=== PATIENT | female | born 1935 | race Two or more races ===

== ENCOUNTER 2017-08-06 20:21 | Emergency (ER) | payer OTHER ==
[2017-08-06 20:32] VITALS: BP 159/65; PULSE 68; TEMP 99; BMI 26.5
--- NOTE | 2017-08-06 20:59 | PDOC ---
Attending Attestation - Resident Resident Name: JaxsonmorrisKelton - ED Attending Attestation I have performed the following: I have examined & evaluated the patient, The case was reviewed & discussed with the resident, I agree w/resident's findings & plan - HPI HPI: 08/06/17 21:45 Pt comes with flu like symptoms. - Physicial Exam PE: 08/06/17 21:45 Agree with resident exam - Medical Decision Making 08/06/17 21:45 CXR normal, Flu culture pending CBC and chem pending Pt will be discharged home with 08/07/17 00:32 Flu positive. Pt hydrated with 1 L fluid. IV placed by myself in her left EJ vein
--- NOTE | 2017-08-06 21:04 | PDOC ---
History of Present Illness <Michelle Carmichael - Last Filed: 08/07/17 00:10> - History of Present Illness Initial Comments: 08/06/17 20:58 Pt is an 82 y/o F with PMH HTN, HLD, DM, Thyroid nodule (U/S in 07/16) who presents with 9 days of generalized body pain, coughing productive of clear sputum and yellow diarrhea. Pt has been coughing daily for the past 9 days. Temp at home was 99F. Denies runny nose, nausea, vomiting. Diarrhea stopped yesterday. Pt states she has been drinking fluids and has been eating smaller meals since feeling unwell. Denies recent travel. Pt's daughter was feeling unwell 2 weeks ago, but had different symptoms. <Kelton Barrera - Last Filed: 08/07/17 00:18> - General Chief Complaint: Cold Symptoms Stated Complaint: COUGH, WEAKNESS Time Seen by Provider: 08/06/17 20:36 Past History <Michelle Carmichael - Last Filed: 08/07/17 00:10> - Past Medical History Anemia: No Asthma: No Cancer: No Cardiac Disorders: No CVA: No COPD: No CHF: No Dementia: No Diabetes: Yes Dialysis: No GI Disorders: Yes (ACID REFLUX) Disorders: No HTN: Yes Hypercholesterolemia: Yes Liver Disease: No Seizures: No Thyroid Disease: No - Surgical History Abdominal Surgery: Yes (TUBAL LIGATION) Appendectomy: No Cardiac Surgery: No Cholecystectomy: No Lung Surgery: No Neurologic Surgery: No Orthopedic Surgery: No - Suicide/Smoking/Psychosocial Hx Smoking Status: No Smoking History: Never smoked Number of Cigarettes Smoked Daily: 0 Hx Alcohol Use: No Drug/Substance Use Hx: No Substance Use Type: None Hx Substance Use Treatment: No <Kelton Barrera - Last Filed: 08/07/17 00:18> - Past Medical History Allergies/Adverse Reactions: Allergies Allergy/AdvReac Type Severity Reaction Status Date / Time No Known Allergies Allergy Verified 08/06/17 21:06 Home Medications: Ambulatory Orders Calcium Carbonate/Vitamin D3 [Vitamin D-3 400 Units Tablet] 1 each PO DAILY #0 tablet 12/13/12 Lansoprazole [Prevacid -] 30 mg PO DAILY #0 cap.sr.24h 12/13/12 Mcneal-3 Acid Ethyl Esters [Lovaza -] 4,000 mg PO DAILY #0 cap 05/15/13 Ranitidine Oral Solution [Zantac Oral Solution -] 150 mg PO BID #0 cup 12/13/12 Simvastatin [Zocor -] 40 mg PO HS #0 tablet 12/13/12 Losartan Potassium [Cozaar] 25 mg PO DAILY 01/08/13 Metformin HCl [Glucophage -] 500 mg PO DAILY 01/08/13 Sennosides/Docusate Sodium [Senna Laxative Tablet] 2 each PO BID 01/08/13 Aspirin/Dipyridamole [Aggrenox -] PO DAILY 03/14/13 Benzonatate [Tessalon Pearls -] 100 mg PO TID #21 capsule 08/07/17 Oseltamivir Phosphate [Tamiflu -] 75 mg PO BID #10 capsule 08/07/17 Review of Systems - Review of Systems Able to Perform ROS?: Yes Is the patient limited Jamaican proficient: Yes Constitutional: Yes: Symptoms Reported, Loss of Appetite, Malaise, Weakness. No : Chills, Fever, Night Sweats HEENTM: Yes: Symptoms Reported. No: Eye Pain, Blurred Vision, Tearing, Ear Pain , Nose Congestion, Nose Bleeding, Throat Pain, Throat Swelling Respiratory: Yes: Symptoms reported, See HPI, Cough, Productive cough. No: Orthopnea, Shortness of Breath, Stridor, Wheezing, Hemoptysis Cardiac (ROS): Yes: Symptoms Reported. No: Chest Pain ABD/GI: Yes: Symptoms Reported, Diarrhea, Poor Appetite. No: Constipated, Difficulty Swallowing, Nausea, Poor Fluid Intake, Rectal Bleeding, Vomiting : Yes: Symptoms Reported. No: Burning, Dysuria, Discharge, Frequency, Hematuria Musculoskeletal: Yes: Symptoms Reported, Muscle Pain, Muscle Weakness <Kelton Barrera - Last Filed: 08/07/17 00:18> *Physical Exam - Vital Signs Last Vital Signs Temp Pulse Resp BP Pulse Ox 99 F 68 16 159/65 100 08/06/17 20:25 08/06/17 20:25 08/06/17 20:25 08/06/17 20:25 08/06/17 20:25 <Michelle Carmichael - Last Filed: 08/07/17 00:10> - Vital Signs Last Vital Signs Temp Pulse Resp BP Pulse Ox 99 F 68 16 159/65 100 08/06/17 20:25 08/06/17 20:25 08/06/17 20:25 08/06/17 20:25 08/06/17 20:25 - Physical Exam General Appearance: Yes: Nourished, Appropriately Dressed. No: Apparent Distress HEENT: positive: EOMI, FELICITAS, Normal ENT Inspection, Normal Voice Neck: positive: Supple. negative: Tender Respiratory/Chest: positive: Lungs Clear, Normal Breath Sounds. negative: Chest Tender, Respiratory Distress, Crackles, Rales, Rhonchi, Stridor, Wheezing Cardiovascular: positive: Regular Rhythm, Regular Rate, S1, S2. negative: Edema , JVD, Murmur Vascular Pulses: Dorsalis-Pedis (R): 2+, Doralis-Pedis (L): 2+ Gastrointestinal/Abdominal: positive: Normal Bowel Sounds, Flat, Soft. negative : Tender, Organomegaly, Pulsatile Mass Musculoskeletal: positive: Normal Inspection Extremity: positive: Normal Capillary Refill, Normal Inspection, Normal Range of Motion Neurologic: positive: Fully Oriented, Alert, Normal Mood/Affect <Hilmy,Kelton - Last Filed: 08/07/17 00:18> ED Treatment Course - LABORATORY CBC & Chemistry Diagram: 08/06/17 21:42 08/06/17 21:42 - ADDITIONAL ORDERS Additional order review: Laboratory Results 08/06/17 21:42 Sodium 142 Potassium 5.1 Chloride 108 H Carbon Dioxide 25 Anion Gap 9 BUN 24 H Creatinine 1.3 H D Creat Clearance w eGFR 39.41 Random Glucose 113 H D Calcium 8.8 Total Bilirubin 0.1 L D AST 23 D ALT 26 D Alkaline Phosphatase 81 D Total Protein 7.7 Albumin 4.3 08/06/17 21:15 Influenza Types A,B Antigen (BONITA) - Final Nasopharyngeal Swab - Final 08/06/17 21:42 RBC 4.08 MCV 86.0 MCHC 31.2 L RDW 13.6 MPV 9.6 Neutrophils % 74.3 Lymphocytes % 15.1 D Monocytes % 8.5 Eosinophils % 1.5 D Basophils % 0.6 - RADIOLOGY Radiology Studies Ordered: Category Date Time Status CHEST PA & LAT [RAD] Stat Radiology 08/06/17 20:59 Taken - Medications Given in the ED: ED Medications Discontinued Medications Generic Name Dose Route Start Last Admin Trade Name Freq PRN Reason Stop Dose Admin Oseltamivir Phosphate 30 mg 08/06/17 21:55 08/06/17 22:00 Tamiflu - PO 08/06/17 21:56 30 mg ONCE ONE Administration Sodium Chloride 500 ml 08/06/17 21:58 08/06/17 23:19 Normal Saline - IV 08/06/17 21:59 500 ml ONCE ONE Administration <CarmichaelMichelle - Last Filed: 08/07/17 00:10> - LABORATORY CBC & Chemistry Diagram: 08/06/17 21:42 08/06/17 21:42 <Kelton Barrera - Last Filed: 08/07/17 00:18> Medical Decision Making - Medical Decision Making 08/06/17 21:10 Pt is a pleasant 82y/o F with URI symptoms for 9 days. Plan -CBC -CMP -UA -Flu swab -PA & Lat CXR 08/06/17 21:53 Flu swab positive for influenza Ag 500 ml NS 08/06/17 23:45 NS running. Pt ate small amount of food from tray. She states she's feeling a bit better. Labs significant for mild increase in [employer] from baseline 0.7 -> 1.3 08/06/17 23:51 <Kelton Barrera - Last Filed: 08/07/17 00:18> *DC/Admit/Observation/Transfer - Discharge Dispostion Admit: No <Michelle Carmichael - Last Filed: 08/07/17 00:10> <Kelton Barrera - Last Filed: 08/07/17 00:18> Diagnosis at time of Disposition: Influenza A, Dehydration - Discharge Dispostion Disposition: HOME Condition at time of disposition: Stable - Prescriptions Prescriptions: Benzonatate [Tessalon Pearls -] 100 mg PO TID #21 capsule Oseltamivir Phosphate [Tamiflu -] 75 mg PO BID #10 capsule - Referrals Referrals: Kristofer Valdivia MD [Primary Care Provider] - - Patient Instructions Printed Discharge Instructions: How to Avoid a Cold or Flu Additional Instructions: Please take all your prescription medications as directed. Please follow up with your primary doctor within 1 week. If you develop new symptoms or if your symptoms get worse, please return to the emergency department. - Post Discharge Activity
[2017-08-06] MEDS ORDERED: OSELTAMIVIR PHOSPHATE 30 MG CAPSULE PO ONE (21:55)
[2017-08-06 21:58] LABS: BASO % 0.6 % (0-2.0); EOS % 1.5 % (0-4.5); HEMATOCRIT 35.1 % (32.4-45.2); LYMPH % 15.1 % (8-40); MCH 26.9 pg (25.7-33.7); MCHC 31.2 g/dl (32.0-36.0); MEAN PLT VOLUME 9.6 fl (7.5-11.1); MONO % 8.5 % (3.8-10.2); NEUT % 74.3 % (42.8-82.8); PLATELET COUNT 216 K/MM3 (134-434); RBC 4.08 M/mm3 (3.60-5.2); RDW 13.6 % (11.6-15.6); WHITE BLOOD COUNT 5.4 K/mm3 (4.0-10.0)
[2017-08-06] MEDS ORDERED: SODIUM CHLORIDE 0.9% 500 ML INFUS.BAG IV ONE (21:58)
[2017-08-06] MEDS ORDERED: OSELTAMIVIR PHOSPHATE 75 MG CAPSULE ONE (21:59)
[2017-08-06 22:34] LABS: ALBUMIN 4.3 g/dl (3.4-5.0); ALK PHOS 81 U/L (45-117); ANION GAP 9 (8-16); BILIRUBIN,TOTAL 0.1 mg/dL (0.2-1.0); BLOOD UREA NITROGEN 24 mg/dL (7-18); CALCIUM 8.8 mg/dL (8.5-10.1); CHLORIDE 108 mmol/L (98-107); CO2 25 mmol/L (21-32); CREATININE 1.3 mg/dL (0.55-1.02); GLUCOSE,RANDOM 113 mg/dL (74-106); POTASSIUM 5.1 mmol/L (3.5-5.1); SGOT/AST 23 U/L (15-37); SGPT/ALT 26 U/L (12-78); SODIUM 142 mmol/L (136-145); TOT PROT 7.7 g/dl (6.4-8.2)
== END 2017-08-07 00:30 | disposition home or self-care (01) ==
LOC: JER 20:21
DX: J10.1 Influenza due to other identified influenza virus with other respiratory manifestations (principal); E86.0 Dehydration; I10 Essential (primary) hypertension; E11.9 Type 2 diabetes mellitus without complications; Z79.84 Long term (current) use of oral hypoglycemic drugs; E78.00 Pure hypercholesterolemia, unspecified
CPT/HCPCS: 36415; 71046-TC; 80053; 85025; 87804; 99281-25

== ENCOUNTER → 2017-12-13 | Day surgery (SDC) | payer OTHER ==
--- NOTE | 2017-12-15 09:13 | PATH ---
Cytology Non-Gynecological Report Patient Name: MICHAEL MONTILLA [facility]. Rec. #: [id number] /Age/Gender: 1935 (Age: 82) / F Account: [id number] Location: RADIOLOGY Taken: 12/13/2017 Received: 12/14/2017 Reported: 12/15/2017 Physicians: Chandana Da Silva M.D. Specimen(s) Received THYROID FNA Clinical History Thyroid nodules Final Diagnosis THYROID, RIGHT, FINE NEEDLE ASPIRATION: SATISFACTORY FOR EVALUATION B[place] CLASS II: BENIGN CYTOLOGIC FINDINGS ARE CONSISTENT WITH A BENIGN FOLLICULAR NODULE. BENIGN SMALL FOLLICULAR CELLS AND COLLOID PRESENT. Electronically Signed Huber Nice M.D. Gross Description Received are eight direct smears, four of which are air-dried and Diff-Quik stained, and four of which are alcohol fixed and Pap stained. Also received is 20 ml of bloody formalin from which one cellblock is prepared. The
== END | disposition home or self-care (01) ==
LOC: JRADIR 09:18
PROVIDERS: ATTEND Internal Medicine Endocrinology, Diabetes & Metabolism
PROC: 0G9H3ZX Drainage of Right Thyroid Gland Lobe, Percutaneous Approach, Diagnostic (ICD-10-PCS; principal; 2017-12-13)
DX: E04.1 Nontoxic single thyroid nodule (principal)
CPT/HCPCS: 76942; 88173; 88305-TC

== ENCOUNTER 2020-10-20 20:21 | Inpatient (IN) | payer OTHER ==
[2020-10-20] MEDS ORDERED: ACETAMINOPHEN 1000 MG/100 ML VIAL (NON FORMULARY) IVPB ONE (21:30)
[2020-10-20] MEDS ORDERED: DEXAMETHASONE SOD PHOSPHATE 4 MG/1 ML VIAL IVPUSH ONE (22:13)
[2020-10-20 22:24] LABS: BASO % 0.1 % (0-2.0); HEMATOCRIT 28.2 % (32.4-45.2); HEMOGLOBIN 9.2 GM/dL (10.7-15.3); LYMPH % 7.3 % (8-40); MCH 27.3 pg (25.7-33.7); MCHC 32.6 g/dl (32.0-36.0); MEAN CELL VOLUME 83.8 fl (80-96); MEAN PLT VOLUME 8.9 fl (7.5-11.1); MONO % 5.6 % (3.8-10.2); PLATELET COUNT 302 K/MM3 (134-434); RBC 3.37 M/mm3 (3.60-5.2); RDW 13.1 % (11.6-15.6); WHITE BLOOD COUNT 7.7 K/mm3 (4.0-10.0)
[2020-10-20 22:25] LABS: VENOUS BASE EXCESS -2.8 mmol/L (-2-2); VENOUS O2 SATURATION 42.9 % (70-80); VENOUS PCO2 39.1 mmHg (38-52); VENOUS PH 7.372 (7.310-7.410)
[2020-10-20 22:34] LABS: INR 1.1 (0.83-1.09); PROTHROMBIN TIME (PATIENT) 13.3 SEC (9.7-13.0)
[2020-10-20 22:37] LABS: ACTIVATED PTT 27.2 SECONDS (25.2-36.5)
[2020-10-20 22:42] LABS: CHLORIDE 108 mmol/L (98-107); POTASSIUM 5.5 mmol/L (3.5-5.1); SODIUM 137 mmol/L (136-145)
[2020-10-20 22:43] LABS: CALCIUM 8.5 mg/dL (8.5-10.1)
[2020-10-20 22:44] LABS: ALBUMIN 3.1 g/dl (3.4-5.0); ANION GAP 7 MMOL/L (8-16); BLOOD UREA NITROGEN 25.8 mg/dL (7-18); CO2 22 mmol/L (21-32); GLUCOSE,RANDOM 98 mg/dL (74-106)
[2020-10-20] MEDS ORDERED: DEXAMETHASONE SOD PHOSPHATE 10 MG/1 ML VIAL ONE (22:45)
[2020-10-20] MEDS ORDERED: ACETAMINOPHEN INJECTION 100 ML IVPB ONE (22:45)
[2020-10-20 22:46] LABS: BILIRUBIN,DIRECT < 0.1 mg/dL (0.0-0.2); SGPT/ALT 18 U/L (13-61)
[2020-10-20 22:48] LABS: CREATININE 1.5 mg/dL (0.55-1.3); SGOT/AST 44 U/L (15-37)
[2020-10-20 22:49] LABS: ALK PHOS 57 U/L (45-117); BILIRUBIN,TOTAL 0.3 mg/dL (0.2-1); LDH 506 U/L (84-246); TOT PROT 7.2 g/dl (6.4-8.2)
[2020-10-20] MEDS ORDERED: SODIUM CHLORIDE 0.9% 500 ML INFUS.BAG IV ONE (22:51)
[2020-10-21] MEDS ORDERED: ACETAMINOPHEN 325 MG TABLET (FP) PO PRN (01:27)
[2020-10-21] MEDS ORDERED: ALBUTEROL SO4 HFA INHALER IH PRN (01:27)
[2020-10-21] MEDS ORDERED: BENZOCAINE/MENTH/CETYLPYRD CL 1 EACH LOZENGE MM PRN (01:27)
[2020-10-21 01:29] LABS: EPI CELLS 13 /uL (0-25.1); HYALINE CASTS 3 /uL (0-3.1); URINE APPEARANCE CLEAR; URINE BACTERIA 46 /uL (0-1359); URINE BILIRUBIN NEGATIVE (NEGATIVE); URINE COLOR YELLOW; URINE GLUCOSE (UA) NEGATIVE (NEGATIVE); URINE KETONE TRACE (NEGATIVE); URINE LEUK ESTERASE NEGATIVE (NEGATIVE); URINE NITRITE NEGATIVE (NEGATIVE); URINE PROTEIN 2+ (NEGATIVE); URINE RBC 10 /uL (0-23.9); URINE UROBILINOGEN 0.2 mg/dL (0.2-1.0); URINE WBC 7 /uL (0-25.8)
[2020-10-21] MEDS ORDERED: ONDANSETRON 4 MG/2 ML VIAL IM PRN (01:46)
[2020-10-21] MEDS ORDERED: ONDANSETRON 4 MG/2 ML VIAL IVPUSH PRN (01:56)
[2020-10-21] MEDS ORDERED: HEPARIN NA (PORCINE) 5,000 UNITS/ML 1ML VIAL ONE (04:13)
[2020-10-21] MEDS: HEPARIN NA (PORCINE) 5,000 UNITS/ML 1ML VIAL SQ SCH ×3 (04:23→17:49)
[2020-10-21] MEDS: LEVOTHYROXINE NA 25 MCG TABLET (FP) PO SCH (06:03)
[2020-10-21] MEDS: INSULIN SLIDING SCALE (NOVOLOG) 1 VIAL SQ SCH ×4 (06:03→21:50)
[2020-10-21 06:21] VITALS: BMI 26.0
[2020-10-21 08:36] LABS: HEMATOCRIT 28.2 % (32.4-45.2); HEMOGLOBIN 9.4 GM/dL (10.7-15.3); MCH 27.6 pg (25.7-33.7); MCHC 33.2 g/dl (32.0-36.0); MEAN CELL VOLUME 83.1 fl (80-96); MEAN PLT VOLUME 8.6 fl (7.5-11.1); PLATELET COUNT 301 K/MM3 (134-434); RBC 3.39 M/mm3 (3.60-5.2); RDW 13.2 % (11.6-15.6); WHITE BLOOD COUNT 6.7 K/mm3 (4.0-10.0)
[2020-10-21 08:49] LABS: POTASSIUM 4.9 mmol/L (3.5-5.1)
[2020-10-21 09:11] LABS: IRON SERUM 8 ug/dL (50-175); TOTAL IRON BINDING CAPACITY 226 ug/dL (250-450)
[2020-10-21 09:14] LABS: CALCIUM 8.5 mg/dL (8.5-10.1)
[2020-10-21 09:17] LABS: CREATININE 1.4 mg/dL (0.55-1.3); PHOSPHOROUS 3.5 mg/dL (2.5-4.9)
[2020-10-21 09:19] LABS: BILIRUBIN,TOTAL 0.3 mg/dL (0.2-1); TOT PROT 6.8 g/dl (6.4-8.2)
[2020-10-21] MEDS: ZINC SULFATE 220 MG CAPSULE (FP) PO SCH (09:49)
[2020-10-21] MEDS: CHOLECALCIFEROL (VIT D3) 1,000 UNIT (25 MCG) TABLET PO SCH (09:49)
[2020-10-21] MEDS: ASCORBIC ACID 500 MG TABLET (FP) PO SCH ×2 (09:50→21:45)
[2020-10-21] MEDS: DEXAMETHASONE SOD PHOSPHATE 4 MG/1 ML VIAL IVPUSH SCH (09:50)
[2020-10-21] MEDS: hydrALAZINE HCL 25 MG TABLET (FP) PO SCH ×2 (09:50→21:45)
[2020-10-21] MEDS: BUDESONIDE/FORMETEROL FUMARATE 160/4.5 mcg INHALER IH SCH ×2 (13:28→21:55)
[2020-10-21] MEDS: ALBUTEROL SO4 HFA INHALER IH SCH ×3 (13:29→21:54)
[2020-10-21] MEDS ORDERED: REMDESIVIR 200 MG in SODIUM CHLORIDE 210 ML IVPB ONE (14:00)
[2020-10-21] MEDS ORDERED: LACTATED RINGERS SOLUTION 1,000 ML/1,000 ML INFUS.BAG IV SCH (14:15)
[2020-10-21 16:39] LABS: EPI CELLS 8 /uL (0-25.1); HYALINE CASTS 1 /uL (0-3.1); URINE APPEARANCE CLEAR; URINE BACTERIA 407 /uL (0-1359); URINE BILIRUBIN NEGATIVE (NEGATIVE); URINE COLOR YELLOW; URINE GLUCOSE (UA) 1+ (NEGATIVE); URINE KETONE NEGATIVE (NEGATIVE); URINE LEUK ESTERASE NEGATIVE (NEGATIVE); URINE NITRITE NEGATIVE (NEGATIVE); URINE PROTEIN 2+ (NEGATIVE); URINE RBC 6 /uL (0-23.9); URINE UROBILINOGEN 0.2 mg/dL (0.2-1.0); URINE WBC 3 /uL (0-25.8)
[2020-10-21] MEDS: ATORVASTATIN CA 10 MG TABLET (FP) PO SCH (21:45)
[2020-10-21] MEDS ORDERED: FAMOTIDINE 20 MG/50 ML IVPB 20 MG/50 ML MG IVPB SCH (22:00)
[2020-10-22] MEDS: HEPARIN NA (PORCINE) 5,000 UNITS/ML 1ML VIAL SQ SCH ×3 (03:19→17:04)
[2020-10-22] MEDS: LEVOTHYROXINE NA 25 MCG TABLET (FP) PO SCH (06:25)
[2020-10-22] MEDS: INSULIN SLIDING SCALE (NOVOLOG) 1 VIAL SQ SCH ×4 (06:28→23:46)
[2020-10-22 08:38] LABS: BASO % 0.2 % (0-2.0); HEMATOCRIT 30.2 % (32.4-45.2); HEMOGLOBIN 10.1 GM/dL (10.7-15.3); LYMPH % 4.8 % (8-40); MCH 27.4 pg (25.7-33.7); MCHC 33.4 g/dl (32.0-36.0); MEAN CELL VOLUME 82.2 fl (80-96); MEAN PLT VOLUME 8.2 fl (7.5-11.1); MONO % 3.6 % (3.8-10.2); NEUT % 91.4 % (42.8-82.8); PLATELET COUNT 425 K/MM3 (134-434); RBC 3.68 M/mm3 (3.60-5.2); RDW 13.1 % (11.6-15.6); WHITE BLOOD COUNT 17.3 K/mm3 (4.0-10.0)
[2020-10-22] MEDS: ALBUTEROL SO4 HFA INHALER IH SCH ×4 (08:48→20:10)
[2020-10-22 09:13] LABS: POTASSIUM 4.6 mmol/L (3.5-5.1)
[2020-10-22 09:38] LABS: BLOOD UREA NITROGEN 31.5 mg/dL (7-18)
[2020-10-22 09:39] LABS: ALBUMIN 3.2 g/dl (3.4-5.0); GLUCOSE,RANDOM 157 mg/dL (74-106)
[2020-10-22 09:40] LABS: SGOT/AST 36 U/L (15-37)
[2020-10-22 09:41] LABS: CREATININE 1.3 mg/dL (0.55-1.3); LDH 400 U/L (84-246); PHOSPHOROUS 2.5 mg/dL (2.5-4.9); SGPT/ALT 24 U/L (13-61); TOT PROT 7.4 g/dl (6.4-8.2)
[2020-10-22 09:42] LABS: BILIRUBIN,TOTAL 0.2 mg/dL (0.2-1)
[2020-10-22] MEDS: DEXAMETHASONE SOD PHOSPHATE 4 MG/1 ML VIAL IVPUSH SCH (09:59)
[2020-10-22] MEDS: ZINC SULFATE 220 MG CAPSULE (FP) PO SCH (10:00)
[2020-10-22] MEDS: hydrALAZINE HCL 25 MG TABLET (FP) PO SCH ×2 (10:00→21:27)
[2020-10-22] MEDS: CHOLECALCIFEROL (VIT D3) 1,000 UNIT (25 MCG) TABLET PO SCH (10:00)
[2020-10-22] MEDS: ASCORBIC ACID 500 MG TABLET (FP) PO SCH ×2 (10:00→21:27)
[2020-10-22] MEDS ORDERED: FAMOTIDINE 20 MG/50 ML IVPB 20 MG/50 ML MG IVPB SCH ×2 (10:00→22:00)
[2020-10-22] MEDS: BUDESONIDE/FORMETEROL FUMARATE 160/4.5 mcg INHALER IH SCH ×2 (10:00→21:28)
[2020-10-22 10:03] LABS: CHLORIDE 110 mmol/L (98-107); SODIUM 139 mmol/L (136-145)
[2020-10-22 11:12] LABS: ALK PHOS 64 U/L (45-117); ANION GAP 12 MMOL/L (8-16); CO2 17 mmol/L (21-32)
[2020-10-22 11:16] LABS: ANISOCYTOSIS 1+; MACROCYTOSIS 0; PLATELET ESTIMATE NORMAL
[2020-10-22] MEDS: FAMOTIDINE 20 MG/50 ML IVPB 20 MG/50 ML MG IVPB SCH (12:59)
[2020-10-22] MEDS: REMDESIVIR 100 MG in SODIUM CHLORIDE 230 ML IVPB SCH (14:37)
[2020-10-22] MEDS: ATORVASTATIN CA 10 MG TABLET (FP) PO SCH (21:27)
[2020-10-23] MEDS: HEPARIN NA (PORCINE) 5,000 UNITS/ML 1ML VIAL SQ SCH ×3 (01:45→17:23)
[2020-10-23] MEDS: LEVOTHYROXINE NA 25 MCG TABLET (FP) PO SCH (06:18)
[2020-10-23] MEDS: INSULIN SLIDING SCALE (NOVOLOG) 1 VIAL SQ SCH ×4 (06:23→21:46)
[2020-10-23] MEDS ORDERED: PT OWN MED DRAWER 7, Y5N ONE (09:05)
[2020-10-23] MEDS: ALBUTEROL SO4 HFA INHALER IH SCH ×4 (09:20→20:40)
[2020-10-23] MEDS: ASCORBIC ACID 500 MG TABLET (FP) PO SCH ×2 (09:21→21:33)
[2020-10-23] MEDS: BUDESONIDE/FORMETEROL FUMARATE 160/4.5 mcg INHALER IH SCH ×2 (09:21→21:40)
[2020-10-23] MEDS: CHOLECALCIFEROL (VIT D3) 1,000 UNIT (25 MCG) TABLET PO SCH (09:21)
[2020-10-23] MEDS: DEXAMETHASONE SOD PHOSPHATE 4 MG/1 ML VIAL IVPUSH SCH (09:21)
[2020-10-23] MEDS: ZINC SULFATE 220 MG CAPSULE (FP) PO SCH (09:21)
[2020-10-23] MEDS: hydrALAZINE HCL 25 MG TABLET (FP) PO SCH ×2 (09:21→21:33)
[2020-10-23 11:08] LABS: HEMATOCRIT 30.4 % (32.4-45.2); HEMOGLOBIN 9.8 GM/dL (10.7-15.3); LYMPH % 4.2 % (8-40); MCH 26.7 pg (25.7-33.7); MCHC 32.1 g/dl (32.0-36.0); MEAN CELL VOLUME 83.4 fl (80-96); MEAN PLT VOLUME 8.4 fl (7.5-11.1); MONO % 4.7 % (3.8-10.2); NEUT % 91.1 % (42.8-82.8); PLATELET COUNT 469 K/MM3 (134-434); RBC 3.65 M/mm3 (3.60-5.2); RDW 13.5 % (11.6-15.6)
[2020-10-23 11:33] LABS: POTASSIUM 4.4 mmol/L (3.5-5.1)
[2020-10-23 11:35] LABS: CALCIUM 8.9 mg/dL (8.5-10.1)
[2020-10-23 11:36] LABS: ALBUMIN 3.2 g/dl (3.4-5.0); BLOOD UREA NITROGEN 41.2 mg/dL (7-18); MAGNESIUM 2.1 mg/dL (1.8-2.4)
[2020-10-23 11:39] LABS: CREATININE 1.5 mg/dL (0.55-1.3); PHOSPHOROUS 2.2 mg/dL (2.5-4.9)
[2020-10-23 11:40] LABS: BILIRUBIN,TOTAL 0.2 mg/dL (0.2-1)
[2020-10-23 11:41] LABS: TOT PROT 7.2 g/dl (6.4-8.2)
[2020-10-23 11:53] LABS: ANISOCYTOSIS 1+; MACROCYTOSIS 0; OVALOCYTE 1+; PLATELET ESTIMATE NORMAL
[2020-10-23] MEDS ORDERED: SODIUM PHOSPHATE - 30 MM in SODIUM CHLORIDE 500 ML IVPB ONE (14:00)
[2020-10-23] MEDS: REMDESIVIR 100 MG in SODIUM CHLORIDE 230 ML IVPB SCH (14:11)
[2020-10-23] MEDS ORDERED: SODIUM CHLORIDE 0.45% 1,000 ML IV SCH (19:15)
[2020-10-23] MEDS: ATORVASTATIN CA 10 MG TABLET (FP) PO SCH (21:33)
[2020-10-24] MEDS: HEPARIN NA (PORCINE) 5,000 UNITS/ML 1ML VIAL SQ SCH ×2 (03:30→09:05)
[2020-10-24] MEDS: LEVOTHYROXINE NA 25 MCG TABLET (FP) PO SCH (06:58)
[2020-10-24] MEDS: INSULIN SLIDING SCALE (NOVOLOG) 1 VIAL SQ SCH ×4 (06:58→23:00)
[2020-10-24] MEDS: ALBUTEROL SO4 HFA INHALER IH SCH ×4 (08:43→20:44)
[2020-10-24 09:02] LABS: BASO % 0.1 % (0-2.0); HEMATOCRIT 30.6 % (32.4-45.2); HEMOGLOBIN 10.2 GM/dL (10.7-15.3); LYMPH % 7.1 % (8-40); MCH 27.3 pg (25.7-33.7); MCHC 33.5 g/dl (32.0-36.0); MEAN CELL VOLUME 81.4 fl (80-96); MEAN PLT VOLUME 8.2 fl (7.5-11.1); MONO % 5.9 % (3.8-10.2); NEUT % 86.9 % (42.8-82.8); PLATELET COUNT 504 K/MM3 (134-434); RBC 3.75 M/mm3 (3.60-5.2); RDW 13.3 % (11.6-15.6); WHITE BLOOD COUNT 11.4 K/mm3 (4.0-10.0)
[2020-10-24] MEDS: ASCORBIC ACID 500 MG TABLET (FP) PO SCH ×2 (09:02→23:00)
[2020-10-24] MEDS: hydrALAZINE HCL 25 MG TABLET (FP) PO SCH ×2 (09:02→23:00)
[2020-10-24] MEDS: DEXAMETHASONE SOD PHOSPHATE 4 MG/1 ML VIAL IVPUSH SCH (09:02)
[2020-10-24] MEDS: ZINC SULFATE 220 MG CAPSULE (FP) PO SCH (09:02)
[2020-10-24] MEDS: CHOLECALCIFEROL (VIT D3) 1,000 UNIT (25 MCG) TABLET PO SCH (09:02)
[2020-10-24 09:21] LABS: POTASSIUM 4.5 mmol/L (3.5-5.1)
[2020-10-24] MEDS: BUDESONIDE/FORMETEROL FUMARATE 160/4.5 mcg INHALER IH SCH ×2 (09:28→23:00)
[2020-10-24 09:31] LABS: BILIRUBIN,TOTAL 0.2 mg/dL (0.2-1)
[2020-10-24 09:32] LABS: TOT PROT 6.9 g/dl (6.4-8.2)
[2020-10-24 09:33] LABS: PHOSPHOROUS 3.7 mg/dL (2.5-4.9)
[2020-10-24 09:34] LABS: BLOOD UREA NITROGEN 34.4 mg/dL (7-18); CALCIUM 8.8 mg/dL (8.5-10.1); CREATININE 1.3 mg/dL (0.55-1.3); MAGNESIUM 2.2 mg/dL (1.8-2.4)
[2020-10-24] MEDS ORDERED: INSULIN (NOVOLOG) ASPART 100 UNITS/ML 10ML VIAL ONE ×2 (11:02→22:24)
[2020-10-24] MEDS: FAMOTIDINE 20 MG/50 ML IVPB 20 MG/50 ML MG IVPB SCH (11:27)
[2020-10-24] MEDS: ENOXAPARIN NA (PORCINE) 80 MG/0.8 ML DISP.SYRIN SQ SCH (11:31)
[2020-10-24 13:23] LABS: ANISOCYTOSIS 0; MACROCYTOSIS 0; PLATELET ESTIMATE INCREASED
[2020-10-24] MEDS: REMDESIVIR 100 MG in SODIUM CHLORIDE 230 ML IVPB SCH (14:00)
[2020-10-24] MEDS: SODIUM CHLORIDE 0.45% 1,000 ML IV SCH (16:17)
[2020-10-24] MEDS: ATORVASTATIN CA 10 MG TABLET (FP) PO SCH (23:00)
[2020-10-24] MEDS: guaiFENesin 200 MG/10 ML 10 ML UNIT-DOSE CUPS PO PRN (23:12)
[2020-10-25] MEDS: LEVOTHYROXINE NA 25 MCG TABLET (FP) PO SCH (06:10)
[2020-10-25] MEDS: INSULIN SLIDING SCALE (NOVOLOG) 1 VIAL SQ SCH ×4 (06:10→22:29)
[2020-10-25] MEDS: BUDESONIDE/FORMETEROL FUMARATE 160/4.5 mcg INHALER IH SCH ×2 (10:00→22:29)
[2020-10-25 10:47] LABS: HEMATOCRIT 29.3 % (32.4-45.2); HEMOGLOBIN 9.8 GM/dL (10.7-15.3); LYMPH % 7.2 % (8-40); MCH 27.4 pg (25.7-33.7); MCHC 33.6 g/dl (32.0-36.0); MEAN CELL VOLUME 81.6 fl (80-96); MEAN PLT VOLUME 8.1 fl (7.5-11.1); MONO % 4.7 % (3.8-10.2); NEUT % 88.1 % (42.8-82.8); PLATELET COUNT 493 K/MM3 (134-434); RBC 3.59 M/mm3 (3.60-5.2); WHITE BLOOD COUNT 11.5 K/mm3 (4.0-10.0)
[2020-10-25] MEDS: ENOXAPARIN NA (PORCINE) 80 MG/0.8 ML DISP.SYRIN SQ SCH (11:16)
[2020-10-25] MEDS: DEXAMETHASONE SOD PHOSPHATE 4 MG/1 ML VIAL IVPUSH SCH (11:16)
[2020-10-25] MEDS: hydrALAZINE HCL 25 MG TABLET (FP) PO SCH ×2 (11:16→22:29)
[2020-10-25] MEDS: CHOLECALCIFEROL (VIT D3) 1,000 UNIT (25 MCG) TABLET PO SCH (11:16)
[2020-10-25] MEDS: ZINC SULFATE 220 MG CAPSULE (FP) PO SCH (11:16)
[2020-10-25] MEDS: ASCORBIC ACID 500 MG TABLET (FP) PO SCH ×2 (11:16→22:29)
[2020-10-25 11:48] LABS: POTASSIUM 4.2 mmol/L (3.5-5.1)
[2020-10-25 11:50] LABS: CALCIUM 8.4 mg/dL (8.5-10.1)
[2020-10-25 11:51] LABS: ALBUMIN 2.7 g/dl (3.4-5.0); MAGNESIUM 1.9 mg/dL (1.8-2.4)
[2020-10-25 11:54] LABS: CREATININE 1.2 mg/dL (0.55-1.3); PHOSPHOROUS 2.5 mg/dL (2.5-4.9)
[2020-10-25 11:55] LABS: BILIRUBIN,TOTAL 0.3 mg/dL (0.2-1); TOT PROT 6.2 g/dl (6.4-8.2)
[2020-10-25 12:58] LABS: ANISOCYTOSIS 1+; MACROCYTOSIS 0; PLATELET ESTIMATE INCREASED
[2020-10-25] MEDS: REMDESIVIR 100 MG in SODIUM CHLORIDE 230 ML IVPB SCH (13:39)
[2020-10-25] MEDS ORDERED: INSULIN (NOVOLOG) ASPART 100 UNITS/ML 10ML VIAL ONE (16:30)
[2020-10-25] MEDS: ALBUTEROL SO4 HFA INHALER IH SCH (20:55)
[2020-10-25] MEDS: ATORVASTATIN CA 10 MG TABLET (FP) PO SCH (22:28)
[2020-10-26] MEDS: INSULIN SLIDING SCALE (NOVOLOG) 1 VIAL SQ SCH ×4 (06:47→21:57)
[2020-10-26] MEDS: LEVOTHYROXINE NA 25 MCG TABLET (FP) PO SCH (06:47)
[2020-10-26] MEDS: guaiFENesin 200 MG/10 ML 10 ML UNIT-DOSE CUPS PO PRN ×2 (07:42→22:05)
[2020-10-26] MEDS ORDERED: INSULIN (NOVOLOG) ASPART 100 UNITS/ML 10ML VIAL ONE (07:45)
[2020-10-26 09:49] LABS: BASO % 0.2 % (0-2.0); EOS % 0.1 % (0-4.5); HEMATOCRIT 31.2 % (32.4-45.2); HEMOGLOBIN 10.7 GM/dL (10.7-15.3); LYMPH % 6.1 % (8-40); MCH 27.8 pg (25.7-33.7); MCHC 34.4 g/dl (32.0-36.0); MEAN CELL VOLUME 80.7 fl (80-96); MEAN PLT VOLUME 8.3 fl (7.5-11.1); MONO % 4.8 % (3.8-10.2); NEUT % 88.8 % (42.8-82.8); PLATELET COUNT 478 K/MM3 (134-434); RBC 3.86 M/mm3 (3.60-5.2); RDW 13.1 % (11.6-15.6); WHITE BLOOD COUNT 10.7 K/mm3 (4.0-10.0)
[2020-10-26 10:08] LABS: POTASSIUM 4.4 mmol/L (3.5-5.1)
[2020-10-26 10:41] LABS: CALCIUM 8.8 mg/dL (8.5-10.1)
[2020-10-26 10:42] LABS: ALBUMIN 2.7 g/dl (3.4-5.0); BLOOD UREA NITROGEN 35.4 mg/dL (7-18)
[2020-10-26 10:45] LABS: CREATININE 1.2 mg/dL (0.55-1.3)
[2020-10-26 10:46] LABS: BILIRUBIN,TOTAL 0.3 mg/dL (0.2-1); TOT PROT 6.3 g/dl (6.4-8.2)
[2020-10-26 10:47] LABS: ANISOCYTOSIS 0; MACROCYTOSIS 0; PLATELET ESTIMATE NORMAL
[2020-10-26] MEDS: CHOLECALCIFEROL (VIT D3) 1,000 UNIT (25 MCG) TABLET PO SCH (11:11)
[2020-10-26] MEDS: ZINC SULFATE 220 MG CAPSULE (FP) PO SCH (11:11)
[2020-10-26] MEDS: hydrALAZINE HCL 25 MG TABLET (FP) PO SCH ×2 (11:11→21:57)
[2020-10-26] MEDS: DEXAMETHASONE SOD PHOSPHATE 4 MG/1 ML VIAL IVPUSH SCH (11:11)
[2020-10-26] MEDS: ENOXAPARIN NA (PORCINE) 80 MG/0.8 ML DISP.SYRIN SQ SCH (11:11)
[2020-10-26] MEDS: ASCORBIC ACID 500 MG TABLET (FP) PO SCH ×2 (11:11→21:57)
[2020-10-26] MEDS: BUDESONIDE/FORMETEROL FUMARATE 160/4.5 mcg INHALER IH SCH ×2 (11:11→21:58)
[2020-10-26] MEDS: FAMOTIDINE 20 MG/50 ML IVPB 20 MG/50 ML MG IVPB SCH (11:12)
[2020-10-26] MEDS: SODIUM CHLORIDE 0.45% 1,000 ML IV SCH ×2 (11:29→21:56)
[2020-10-26] MEDS: ALBUTEROL SO4 HFA INHALER IH SCH (21:57)
[2020-10-26] MEDS: ATORVASTATIN CA 10 MG TABLET (FP) PO SCH (21:57)
[2020-10-27] MEDS: LEVOTHYROXINE NA 25 MCG TABLET (FP) PO SCH (06:20)
[2020-10-27] MEDS: INSULIN SLIDING SCALE (NOVOLOG) 1 VIAL SQ SCH ×3 (06:22→16:22)
[2020-10-27] MEDS: ALBUTEROL SO4 HFA INHALER IH SCH ×3 (08:10→16:22)
[2020-10-27] MEDS: ENOXAPARIN NA (PORCINE) 80 MG/0.8 ML DISP.SYRIN SQ SCH (10:00)
[2020-10-27] MEDS: ASCORBIC ACID 500 MG TABLET (FP) PO SCH (10:00)
[2020-10-27] MEDS: hydrALAZINE HCL 25 MG TABLET (FP) PO SCH (10:00)
[2020-10-27] MEDS: ZINC SULFATE 220 MG CAPSULE (FP) PO SCH (10:00)
[2020-10-27] MEDS: CHOLECALCIFEROL (VIT D3) 1,000 UNIT (25 MCG) TABLET PO SCH (10:00)
[2020-10-27] MEDS: BUDESONIDE/FORMETEROL FUMARATE 160/4.5 mcg INHALER IH SCH (10:00)
[2020-10-27] MEDS: DEXAMETHASONE SOD PHOSPHATE 4 MG/1 ML VIAL IVPUSH SCH (10:00)
[2020-10-27 15:18] VITALS: BP 125/61; PULSE 68; TEMP 97.7
[2020-10-27] MEDS: SODIUM CHLORIDE 0.45% 1,000 ML IV SCH (16:21)
== END 2020-10-27 21:00 | disposition home or self-care (01) | DRG 177 ==
LOC: JER 20:21 → JERBED 23:52 → J6S 10-21 05:08
PROVIDERS: ADMIT Internal Medicine; ATTEND Internal Medicine
PROC: XW033E5 Introduction of Remdesivir Anti-infective into Peripheral Vein, Percutaneous Approach, New Technology Group 5 (ICD-10-PCS; principal; 2020-10-22)
PROC: XW13325 Transfusion of Convalescent Plasma (Nonautologous) into Peripheral Vein, Percutaneous Approach, New Technology Group 5 (ICD-10-PCS; 2020-10-22)
DX: U07.1 COVID-19 (principal); J12.82 Pneumonia due to coronavirus disease 2019; I50.32 Chronic diastolic (congestive) heart failure; I13.0 Hypertensive heart and chronic kidney disease with heart failure and stage 1 through stage 4 chronic kidney disease, or unspecified chronic kidney disease; N17.9 Acute kidney failure, unspecified; R09.02 Hypoxemia; N18.9 Chronic kidney disease, unspecified; E11.9 Type 2 diabetes mellitus without complications; E78.5 Hyperlipidemia, unspecified; E03.9 Hypothyroidism, unspecified; D63.1 Anemia in chronic kidney disease
CPT/HCPCS: 36415; 36430; 71045-TC-FY; 76775-TC; 80053; 81003; 82248; 82436; 82550; 82553; 82570; 82728; 82803; 82962; 83540; 83550; 83605; 83615; 83735; 83970; 84100; 84133; 84300; 84484; 85025; 85027; 85045; 85379; 85610; 85730; 86140; 86769; 86850; 86900; 86901; 87040; 87086; 87186; 87804; 93005; 93010; 94010; 94761; 97116-GP; 97162-GP; 99285-25; C9399; C9803; J0131; J1644; P9017; U0003

== ENCOUNTER 2024-06-22 20:32 | Inpatient (IN) | payer OTHER ==
[2024-06-22 21:14] LABS: BASO % 0.4 % (0-2.0); EOS % 1.6 % (0-4.5); HEMATOCRIT 33.5 % (32.4-45.2); HEMOGLOBIN 10.8 GM/dL (10.7-15.3); LYMPH % 27.7 % (8-40); MCH 26.6 pg (25.7-33.7); MCHC 32.3 g/dl (32.0-36.0); MEAN CELL VOLUME 82.4 fl (80-96); MEAN PLT VOLUME 8.8 fl (7.5-11.1); MONO % 7.7 % (3.8-10.2); NEUT % 62.6 % (42.8-82.8); PLATELET COUNT 276 10^3/uL (134-434); RBC 4.06 M/mm3 (3.60-5.2); RDW 13.6 % (11.6-15.6)
[2024-06-22 21:30] LABS: INR 0.88 (0.83-1.09); PROTHROMBIN TIME (PATIENT) 10.2 SEC (9.7-13.0)
[2024-06-22 21:31] LABS: CHLORIDE 107 mmol/L (98-107); SODIUM 136 mmol/L (136-145)
[2024-06-22 21:33] LABS: ACTIVATED PTT 28.5 SECONDS (25.2-36.5); CALCIUM 9.1 mg/dL (8.5-10.1)
[2024-06-22 21:34] LABS: ALBUMIN 4.2 g/dl (3.4-5.0); CO2 22 mmol/L (21-32); GLUCOSE,RANDOM 115 mg/dL (74-106); MAGNESIUM 1.7 mg/dL (1.8-2.4)
[2024-06-22 21:37] LABS: CREATININE 1.7 mg/dL (0.55-1.3); PHOSPHOROUS 4.3 mg/dL (2.5-4.9); SGOT/AST 28 U/L (15-37); SGPT/ALT 28 U/L (13-61)
[2024-06-22 21:38] LABS: BILIRUBIN,TOTAL 0.4 mg/dL (0.2-1); TOT PROT 7.5 g/dl (6.4-8.2)
[2024-06-22 21:39] LABS: ANION GAP 7 mmol/L (4-13); POTASSIUM 6.2 mmol/L (3.5-5.1)
[2024-06-22 21:40] LABS: ALK PHOS 70 U/L (45-117)
[2024-06-22] MEDS ORDERED: SODIUM ZIRCONIUM CYCLOSILICATE (LOKELMA) 5 GM PACKET ONE (21:59)
[2024-06-22] MEDS: SODIUM ZIRCONIUM CYCLOSILICATE (LOKELMA) 5 GM PACKET PO ONE (22:15)
[2024-06-22 22:20] LABS: SODIUM 138 mmol/L (136-145)
[2024-06-22 22:21] LABS: CALCIUM 9.2 mg/dL (8.5-10.1); GLUCOSE,RANDOM 115 mg/dL (74-106)
[2024-06-22 22:22] LABS: BLOOD UREA NITROGEN 34.1 mg/dL (7-18); CO2 22 mmol/L (21-32)
[2024-06-22 22:25] LABS: CREATININE 1.7 mg/dL (0.55-1.3)
[2024-06-22 22:29] LABS: ANION GAP 8 mmol/L (4-13); CHLORIDE 108 mmol/L (98-107); POTASSIUM 6.3 mmol/L (3.5-5.1)
[2024-06-22] MEDS ORDERED: CALCIUM CHLORIDE 1 GM/10 ML *DISP.SYRIN ONE (22:58)
[2024-06-22] MEDS ORDERED: DEXTROSE 50%-WATER 25 GM/50 ML DISP.SYRIN ONE (22:58)
[2024-06-22] MEDS ORDERED: CALCIUM GLUC IN NACL, ISO-OSM 1 GM/50 ML BAG IVPB ONE (22:59)
[2024-06-22] MEDS ORDERED: INSULIN REGULAR HUMAN 100 UNITS/ML *VIAL ONE (23:03)
[2024-06-22] MEDS ORDERED: CALCIUM GLUCONATE 10% - 1,000 MG/10 ML VIAL ONE (23:04)
[2024-06-22] MEDS: SODIUM CHLORIDE 0.45% 1,000 ML IV SCH (23:18)
[2024-06-22] MEDS: CALCIUM GLUCONATE 10% - 1,000 MG/10 ML VIAL IVPUSH ONE (23:19)
[2024-06-22] MEDS: DEXTROSE 50%-WATER 25 GM/50 ML DISP.SYRIN IVPUSH ONE (23:19)
[2024-06-22] MEDS: INSULIN REGULAR HUMAN 100 UNITS/ML *VIAL IVPUSH ONE (23:19)
[2024-06-23 00:14] LABS: EPI CELLS 2 /uL (0-25.1); HYALINE CASTS 0 /uL (0-3.1); URINE APPEARANCE CLEAR; URINE BACTERIA 7 /uL (0-1359); URINE BILIRUBIN NEGATIVE (NEGATIVE); URINE COLOR YELLOW; URINE GLUCOSE (UA) TRACE (NEGATIVE); URINE KETONE NEGATIVE (NEGATIVE); URINE LEUK ESTERASE TRACE (NEGATIVE); URINE NITRITE NEGATIVE (NEGATIVE); URINE PROTEIN NEGATIVE (NEGATIVE); URINE RBC 11 /uL (0-23.9); URINE UROBILINOGEN 0.2 mg/dL (0.2-1.0); URINE WBC 93 /uL (0-25.8)
[2024-06-23] MEDS ORDERED: MAGNESIUM SULF 50% (8.12 MEQ/2 ML-1 GM VIAL) ONE (00:23)
[2024-06-23] MEDS: MAGNESIUM SULF 50% (8.12 MEQ/2 ML-1 GM VIAL) IVPB ONE (00:25)
[2024-06-23 01:29] LABS: POTASSIUM 6.5 mmol/L (3.5-5.1)
[2024-06-23 03:04] VITALS: BMI 22.8
[2024-06-23] MEDS: CALCIUM GLUCONATE 10% - 1,000 MG/10 ML VIAL IVPUSH ONE ×2 (04:10→04:21)
[2024-06-23] MEDS: SODIUM ZIRCONIUM CYCLOSILICATE (LOKELMA) 5 GM PACKET PO ONE ×2 (04:11→08:17)
[2024-06-23] MEDS: hydrALAZINE HCL 25 MG TABLET (FP) PO ONE (04:11)
[2024-06-23] MEDS: DEXTROSE 50%-WATER 25 GM/50 ML DISP.SYRIN IVPUSH ONE ×2 (04:11→04:21)
[2024-06-23] MEDS ORDERED: INSULIN ASPART SLIDING SCALE (NOVOLOG) 1 VIAL SQ ONE (04:29)
[2024-06-23] MEDS ORDERED: FUROSEMIDE 40 MG/4 ML INJECTABLE VIAL ONE (04:29)
[2024-06-23] MEDS: FUROSEMIDE 40 MG/4 ML INJECTABLE VIAL IVPUSH ONE (04:37)
[2024-06-23] MEDS: INSULIN (NOVOLOG) ASPART 100 UNITS/ML 10ML VIAL SQ ONE ×3 (04:37→08:16)
[2024-06-23] MEDS: ALBUTEROL SO4 0.083% IH SOL 2.5 MG/3 ML VIAL.NEB. NEB ONE ×2 (06:13→06:15)
[2024-06-23] MEDS: SODIUM ZIRCONIUM CYCLOSILICATE (LOKELMA) 5 GM PACKET PO SCH (06:27)
[2024-06-23] MEDS: HEPARIN NA (PORCINE) 5,000 UNITS/ML 1ML VIAL SQ SCH (06:27)
[2024-06-23] MEDS: INSULIN ASPART SLIDING SCALE (NOVOLOG) 1 VIAL SQ SCH ×2 (07:59→11:58)
[2024-06-23 08:23] LABS: BASO % 0.3 % (0-2.0); EOS % 0.5 % (0-4.5); HEMATOCRIT 33.9 % (32.4-45.2); HEMOGLOBIN 10.9 GM/dL (10.7-15.3); LYMPH % 21.9 % (8-40); MCH 26.4 pg (25.7-33.7); MCHC 32.1 g/dl (32.0-36.0); MEAN CELL VOLUME 82.4 fl (80-96); MEAN PLT VOLUME 9.3 fl (7.5-11.1); MONO % 7.3 % (3.8-10.2); PLATELET COUNT 291 10^3/uL (134-434); RBC 4.11 M/mm3 (3.60-5.2); RDW 13.4 % (11.6-15.6); WHITE BLOOD COUNT 11.2 K/mm3 (4.0-10.0)
[2024-06-23 08:35] LABS: CALCIUM 10.1 mg/dL (8.5-10.1)
[2024-06-23 08:36] LABS: ALBUMIN 4.1 g/dl (3.4-5.0); BLOOD UREA NITROGEN 32.4 mg/dL (7-18); MAGNESIUM 1.8 mg/dL (1.8-2.4)
[2024-06-23 08:39] LABS: CREATININE 1.6 mg/dL (0.55-1.3); PHOSPHOROUS 3.7 mg/dL (2.5-4.9)
[2024-06-23 08:41] LABS: BILIRUBIN,TOTAL 0.3 mg/dL (0.2-1); TOT PROT 7.4 g/dl (6.4-8.2)
[2024-06-23] MEDS: SODIUM CHLORIDE 1,000 ML IV SCH (09:23)
[2024-06-23] MEDS: PANTOPRAZOLE 40 MG TABLET PO SCH (09:32)
[2024-06-23] MEDS: LEVOTHYROXINE NA 25 MCG TABLET (FP) PO SCH (09:32)
[2024-06-23] MEDS: hydrALAZINE HCL 25 MG TABLET (FP) PO SCH (09:32)
[2024-06-23] MEDS: SENNOSIDES/DOCUSATE COMBO (SENNA PLUS) TABLET (UD) PO SCH (09:32)
[2024-06-23] MEDS: ISOSORBIDE MONONITRATE 30 MG TAB.SR.24H (FP) PO SCH (09:32)
[2024-06-23] MEDS: ATORVASTATIN CA 10 MG TABLET (FP) PO SCH (09:32)
[2024-06-23] MEDS: LIPASE/PROTEASE/AMYLASE 36,000 UNIT CAPSULE PO SCH (11:50)
[2024-06-23] MEDS: amLODIPine BESYLATE 10 MG TABLET (FP) PO ONE (13:00)
[2024-06-23 23:16] LABS: EPI CELLS 1 /uL (0-25.1); HYALINE CASTS 0 /uL (0-3.1); URINE APPEARANCE CLEAR; URINE BACTERIA 1 /uL (0-1359); URINE BILIRUBIN NEGATIVE (NEGATIVE); URINE COLOR YELLOW; URINE GLUCOSE (UA) NEGATIVE (NEGATIVE); URINE KETONE NEGATIVE (NEGATIVE); URINE LEUK ESTERASE TRACE (NEGATIVE); URINE NITRITE NEGATIVE (NEGATIVE); URINE PROTEIN NEGATIVE (NEGATIVE); URINE RBC 2 /uL (0-23.9); URINE UROBILINOGEN 0.2 mg/dL (0.2-1.0); URINE WBC 25 /uL (0-25.8)
[2024-06-24 07:00] LABS: BASO % 0.4 % (0-2.0); EOS % 1.8 % (0-4.5); HEMATOCRIT 31.1 % (32.4-45.2); LYMPH % 26.5 % (8-40); MCH 26.4 pg (25.7-33.7); MCHC 32.2 g/dl (32.0-36.0); MEAN CELL VOLUME 81.9 fl (80-96); MEAN PLT VOLUME 8.9 fl (7.5-11.1); MONO % 9.3 % (3.8-10.2); PLATELET COUNT 242 10^3/uL (134-434); RDW 12.9 % (11.6-15.6); WHITE BLOOD COUNT 6.1 K/mm3 (4.0-10.0)
[2024-06-24 07:20] LABS: POTASSIUM 4.4 mmol/L (3.5-5.1)
[2024-06-24 07:31] LABS: ALBUMIN 3.7 g/dl (3.4-5.0); CALCIUM 9.2 mg/dL (8.5-10.1)
[2024-06-24 07:32] LABS: BLOOD UREA NITROGEN 33.9 mg/dL (7-18); CREATININE 1.5 mg/dL (0.55-1.3); MAGNESIUM 1.7 mg/dL (1.8-2.4)
[2024-06-24 07:35] LABS: PHOSPHOROUS 4.2 mg/dL (2.5-4.9)
[2024-06-24 07:36] LABS: BILIRUBIN,TOTAL 0.5 mg/dL (0.2-1); TOT PROT 6.5 g/dl (6.4-8.2)
[2024-06-24] MEDS: amLODIPine BESYLATE 10 MG TABLET (FP) PO SCH (09:10)
[2024-06-24] MEDS: SODIUM ZIRCONIUM CYCLOSILICATE (LOKELMA) 5 GM PACKET PO SCH (09:10)
[2024-06-24] MEDS: ONDANSETRON 4 MG TABLET PO ONE (19:49)
[2024-06-25 11:33] LABS: POTASSIUM 4.3 mmol/L (3.5-5.1)
[2024-06-25 11:41] LABS: BASO % 0.4 % (0-2.0); EOS % 1.7 % (0-4.5); LYMPH % 22.1 % (8-40); MCH 26.4 pg (25.7-33.7); MCHC 32.4 g/dl (32.0-36.0); MEAN CELL VOLUME 81.6 fl (80-96); MEAN PLT VOLUME 9.1 fl (7.5-11.1); MONO % 8.2 % (3.8-10.2); NEUT % 67.6 % (42.8-82.8); PLATELET COUNT 266 10^3/uL (134-434); RBC 4.17 M/mm3 (3.60-5.2); WHITE BLOOD COUNT 6.9 K/mm3 (4.0-10.0)
[2024-06-25 11:42] LABS: ALBUMIN 4.1 g/dl (3.4-5.0); BLOOD UREA NITROGEN 31.6 mg/dL (7-18); CALCIUM 9.6 mg/dL (8.5-10.1); MAGNESIUM 1.8 mg/dL (1.8-2.4)
[2024-06-25 11:45] LABS: PHOSPHOROUS 3.7 mg/dL (2.5-4.9)
[2024-06-25 11:47] LABS: BILIRUBIN,TOTAL 0.5 mg/dL (0.2-1); CREATININE 1.4 mg/dL (0.55-1.3); TOT PROT 7.4 g/dl (6.4-8.2)
[2024-06-25 16:22] VITALS: BP 137/56; PULSE 69; RESP 20; TEMP 98.4
== END 2024-06-25 17:40 | disposition home or self-care (01) | DRG 641 ==
LOC: JER 20:32 → JERBED 06-23 00:46 → J4W 06-23 02:46
PROVIDERS: ADMIT Student in an Organized Health Care Education/Training Program; ATTEND Student in an Organized Health Care Education/Training Program
DX: E87.5 Hyperkalemia (principal); I16.1 Hypertensive emergency; I13.0 Hypertensive heart and chronic kidney disease with heart failure and stage 1 through stage 4 chronic kidney disease, or unspecified chronic kidney disease; E03.9 Hypothyroidism, unspecified; E83.42 Hypomagnesemia; E11.22 Type 2 diabetes mellitus with diabetic chronic kidney disease; N18.9 Chronic kidney disease, unspecified; I50.9 Heart failure, unspecified; R07.89 Other chest pain; E86.0 Dehydration; E04.1 Nontoxic single thyroid nodule; K21.9 Gastro-esophageal reflux disease without esophagitis
CPT/HCPCS: 36415; 71046-TC-FY; 76775-TC; 76856-TC; 80048; 80053; 81003; 82962; 83036; 83735; 84100; 84132; 84300; 84484; 85025; 85610; 85730; 86850; 86900; 86901; 87086; 93005; 93010; 93306-TC; 94640; 97116-GP; 97161-GP; 99285-25; J1644